=== PATIENT | male | born 1950 | race African-American/Black ===

== ENCOUNTER 2018-06-08 07:50 | Emergency (ER) | payer OTHER ==
[~2018-06-08] VITALS: Ht 167.6 cm; Wt 90.0 kg
[2018-06-08] MEDS ORDERED: METHOCARBAMOL 500MG TABLET PO ONE (09:15)
[2018-06-08] MEDS ORDERED: KETOROLAC 30MG/ML VIAL IM ONE (09:15)
[2018-06-08 13:43] VITALS: BP 174/96
== END 2018-06-08 13:43 | disposition home or self-care (01) ==
LOC: ER 07:50
DX: G89.29 Other chronic pain (principal); M54.2 Cervicalgia; I10 Essential (primary) hypertension; E78.00 Pure hypercholesterolemia, unspecified; F14.10 Cocaine abuse, uncomplicated
CPT/HCPCS: 70450; 72125; 96372; 99284; J1885

== ENCOUNTER 2020-02-08 14:01 | Emergency (ER) | payer MEDICARE, OTHER ==
[~2020-02-08] VITALS: Ht 180.3 cm; Wt 76.0 kg
[2020-02-08 15:22] LABS: BASOPHILS % 0.7 % (0.0-2.0); EOSINOPHILS % 1.6 % (0.0-5.0); HEMATOCRIT. 41.3 % (42.0-52.0); HEMOGLOBIN. 13.3 g/dL (14.0-18.0); LYMPHOCYTES % 15.9 % (20.0-50.0); MEAN CORPUSCULAR HEMOGLOBIN 24.5 pg (28.0-32.0); MEAN CORPUSCULAR VOLUME 76.2 fL (80.0-94.0); MONOCYTES % 13.1 % (2.0-8.0); NEUTROPHILS % 68.7 % (40.0-76.0); PLATELET 236 x1000/uL (130-400); RED BLOOD CELL COUNT 5.42 mill/uL (4.7-6.1); RED CELL DISTRIBUTION WIDTH 17.7 % (11.6-14.6)
[2020-02-08 15:29] LABS: CHLORIDE 103 mEq/L (98-107)
[2020-02-08 21:05] VITALS: BP 126/73
== END 2020-02-08 21:06 | disposition home or self-care (01) ==
LOC: ER 14:22
DX: I10 Essential (primary) hypertension (principal); I25.10 Atherosclerotic heart disease of native coronary artery without angina pectoris; F14.10 Cocaine abuse, uncomplicated; E78.00 Pure hypercholesterolemia, unspecified; F12.10 Cannabis abuse, uncomplicated; F17.210 Nicotine dependence, cigarettes, uncomplicated; E66.9 Obesity, unspecified; Z68.23 Body mass index [BMI] 23.0-23.9, adult; Z71.6 Tobacco abuse counseling; Z95.1 Presence of aortocoronary bypass graft
CPT/HCPCS: 36415; 71045; 80053; 83880; 84484; 85025; 93005; 99285

== ENCOUNTER 2020-02-17 01:36 | Inpatient (IN) | payer MEDICARE, OTHER ==
[~2020-02-17] VITALS: Ht 180.3 cm; Wt 102.5 kg
[2020-02-17] MEDS ORDERED: ONDANSETRON HCL 4MG/2ML INJ IV STA (03:06)
[2020-02-17] MEDS ORDERED: MORPHINE SULFATE 4 MG/ML CPJ (NOT FOR IM USE) IV STA (03:06)
[2020-02-17] MEDS ORDERED: NITROGLYCERIN OINT 1GM/INCH UDPKT TD ONE (03:15)
[2020-02-17] MEDS ORDERED: ASPIRIN 81MG TABLET PO ONE (03:15)
[2020-02-17 03:25] LABS: BASOPHILS % 0.9 % (0.0-2.0); EOSINOPHILS % 2.4 % (0.0-5.0); HEMATOCRIT. 46.1 % (42.0-52.0); HEMOGLOBIN. 14.5 g/dL (14.0-18.0); LYMPHOCYTES % 26.7 % (20.0-50.0); MEAN CORPUSCULAR HEMOGLOBIN 24.5 pg (28.0-32.0); MEAN CORPUSCULAR VOLUME 77.8 fL (80.0-94.0); MEAN PLATELET VOLUME 8.5 fl (7.4-10.4); MONOCYTES % 14.3 % (2.0-8.0); NEUTROPHILS % 55.7 % (40.0-76.0); PLATELET 197 x1000/uL (130-400); RED BLOOD CELL COUNT 5.93 mill/uL (4.7-6.1); RED CELL DISTRIBUTION WIDTH 20.1 % (11.6-14.6)
[2020-02-17 04:23] LABS: CHLORIDE 105 mEq/L (98-107)
[2020-02-17 04:27] LABS: ETHANOL BLOOD < 10 mg/dL
[2020-02-17 04:46] LABS: *AMPHETAMINES SCREEN URINE NEGATIVE (NEGATIVE); *BARBITURATES SCREEN URINE NEGATIVE (NEGATIVE); *BENZODIAZEPINES SCREEN URINE NEGATIVE (NEGATIVE); *COCAINE SCREEN URINE PRESUMTIVE POSITIVE (NEGATIVE); METHADONE URINE SCREEN NEGATIVE (NEGATIVE)
[2020-02-17 04:47] LABS: CANNABINOID URINE SCREEN NEGATIVE (NEGATIVE); OPIATES URINE SCREEN PRESUMTIVE POSITIVE (NEGATIVE); PHENCYCLIDINE URINE SCREEN NEGATIVE (NEGATIVE)
[2020-02-17] MEDS ORDERED: TRAMADOL 50MG TABLET PO PRN (09:15)
[2020-02-17] MEDS ORDERED: ACETAMINOPHEN 325MG TABLET PO PRN (09:15)
[2020-02-17] MEDS ORDERED: ONDANSETRON HCL 4MG/2ML INJ IV PRN (09:15)
[2020-02-17] MEDS ORDERED: KETOROLAC 15MG/ML VIAL IV PRN (09:15)
[2020-02-17 09:45] VITALS: BP 140/76
[2020-02-17 11:54] LABS: LDL CHOLESTEROL 70 mg/dL (5-100)
[2020-02-17 11:56] LABS: HDL CHOLESTEROL 71 mg/dL (40-59)
[2020-02-17 12:00] VITALS: BP 107/55
[2020-02-17 16:00] VITALS: BP 130/77
[2020-02-17 16:54] LABS: CREATINE KINASE MB FRACTION 3.4 ng/mL (0.5-3.6); T4 FREE 1.23 ng/dL (0.76-1.46)
[2020-02-17 20:00] VITALS: BP 121/60
[2020-02-17 23:52] LABS: CREATINE KINASE MB FRACTION 2.6 ng/mL (0.5-3.6)
[2020-02-18] VITALS: BP 118/64
[2020-02-18 04:00] VITALS: BP 117/68
[2020-02-18 08:00] VITALS: BP 119/74
[2020-02-18 08:07] LABS: CREATINE KINASE MB FRACTION 1.7 ng/mL (0.5-3.6)
[2020-02-18] MEDS ORDERED: ENOXAPARIN 40MG/0.4ML SYR SUBCUT SCH (09:00)
[2020-02-18] MEDS ORDERED: ASPIRIN 81MG TABLET PO SCH (09:00)
[2020-02-18 11:58] VITALS: BP 115/68
[2020-02-18 16:00] VITALS: BP 109/67
[2020-02-18 16:41] VITALS: BP 115/68
== END 2020-02-18 17:50 | disposition home or self-care (01) | DRG 918 ==
LOC: EDBEDREQTM 04:51 → EDBEDREQ 04:51 → ER 06:06 → 8WST 06:07 → ENRESERV 07:43
PROVIDERS: ADMIT Internal Medicine; ATTEND Internal Medicine
DX: T40.5X1A Poisoning by cocaine, accidental (unintentional), initial encounter (principal); E87.1 Hypo-osmolality and hyponatremia; I50.32 Chronic diastolic (congestive) heart failure; I25.10 Atherosclerotic heart disease of native coronary artery without angina pectoris; E66.9 Obesity, unspecified; E78.5 Hyperlipidemia, unspecified; F19.11 Other psychoactive substance abuse, in remission; I73.9 Peripheral vascular disease, unspecified; I11.0 Hypertensive heart disease with heart failure; Y92.89 Other specified places as the place of occurrence of the external cause; Z95.1 Presence of aortocoronary bypass graft; Z82.49 Family history of ischemic heart disease and other diseases of the circulatory system; Z68.31 Body mass index [BMI] 31.0-31.9, adult; Z79.82 Long term (current) use of aspirin; Z79.899 Other long term (current) drug therapy
CPT/HCPCS: 36415; 71045; 80053; 80061; 80305; 80320; 82550; 82553; 83036; 83880; 84439; 84443; 84484; 85025; 85379; 93005; 93306; 96374; 99285; J1650; J2270; J2405; G0480

== ENCOUNTER 2021-01-16 05:13 | Emergency (ER) | payer OTHER, MEDICARE ==
[~2021-01-16] VITALS: Ht 177.8 cm; Wt 113.0 kg
[~2021-01-16 05:13] MED LIST: AMLO10TA80 PO; CLOP75TA33 PO; GABA-290 PO; SIMV-43 PO
[2021-01-16] MEDS ORDERED: MORPHINE SULFATE 4 MG/ML CPJ (NOT FOR IM USE) IV STA (05:30)
[2021-01-16 06:18] LABS: BASOPHILS % 0.7 % (0.0-2.0); EOSINOPHILS % 0.8 % (0.0-5.0); HEMATOCRIT. 42.9 % (42.0-52.0); LYMPHOCYTES % 11.8 % (20.0-50.0); MEAN CORPUSCULAR HEMOGLOBIN 25.1 pg (28.0-32.0); MEAN CORPUSCULAR VOLUME 76.8 fL (80.0-94.0); MEAN PLATELET VOLUME 8.3 fl (7.4-10.4); MONOCYTES % 11.8 % (2.0-8.0); NEUTROPHILS % 74.9 % (40.0-76.0); PLATELET 205 x1000/uL (130-400); RED BLOOD CELL COUNT 5.58 mill/uL (4.7-6.1); RED CELL DISTRIBUTION WIDTH 20.3 % (11.6-14.6)
[2021-01-16 08:58] LABS: *AMPHETAMINES SCREEN URINE PRESUMTIVE POSITIVE (NEGATIVE); *BARBITURATES SCREEN URINE NEGATIVE (NEGATIVE); *BENZODIAZEPINES SCREEN URINE NEGATIVE (NEGATIVE); *COCAINE SCREEN URINE PRESUMTIVE POSITIVE (NEGATIVE); CANNABINOID URINE SCREEN NEGATIVE (NEGATIVE); METHADONE URINE SCREEN NEGATIVE (NEGATIVE); OPIATES URINE SCREEN PRESUMTIVE POSITIVE (NEGATIVE); PHENCYCLIDINE URINE SCREEN NEGATIVE (NEGATIVE)
[2021-01-16 10:02] LABS: CHLORIDE 104 mEq/L (98-107)
[2021-01-16] MEDS ORDERED: IOHEXOL-350 100 ML BOTTLE ONE (11:23)
[2021-01-16 12:44] VITALS: BP 139/68
== END 2021-01-16 12:45 | disposition home or self-care (01) ==
LOC: ER 05:13
DX: R07.89 Other chest pain (principal); F14.10 Cocaine abuse, uncomplicated; F15.10 Other stimulant abuse, uncomplicated; I10 Essential (primary) hypertension; I25.10 Atherosclerotic heart disease of native coronary artery without angina pectoris; E78.00 Pure hypercholesterolemia, unspecified; Z95.1 Presence of aortocoronary bypass graft
CPT/HCPCS: 36415; 71045; 71275; 80053; 80305; 83880; 84484; 85025; 93005; 96374; 99285; J2270; Q9967

== ENCOUNTER 2021-04-16 08:16 | Inpatient (IN) | payer MEDICARE, OTHER ==
[~2021-04-16] VITALS: Ht 172.7 cm; Wt 102.5 kg
[2021-04-16] MEDS ORDERED: MORPHINE SULFATE 4 MG/ML CPJ (NOT FOR IM USE) IV STA (08:31)
[2021-04-16 09:02] LABS: BASOPHILS % 0.7 % (0.0-2.0); EOSINOPHILS % 1.7 % (0.0-5.0); HEMATOCRIT. 44.8 % (42.0-52.0); HEMOGLOBIN. 14.5 g/dL (14.0-18.0); MEAN CORPUSCULAR HEMOGLOBIN 26.4 pg (28.0-32.0); MEAN CORPUSCULAR VOLUME 81.5 fL (80.0-94.0); MEAN PLATELET VOLUME 8.5 fl (7.4-10.4); MONOCYTES % 9.6 % (2.0-8.0); PLATELET 199 x1000/uL (130-400); RED BLOOD CELL COUNT 5.51 mill/uL (4.7-6.1); RED CELL DISTRIBUTION WIDTH 17.5 % (11.6-14.6)
[2021-04-16 09:07] LABS: CHLORIDE 104 mEq/L (98-107)
[2021-04-16] MEDS ORDERED: GUAIFENESIN 200MG/10ML SUGAR FREE UDC PO PRN (13:30)
[2021-04-16] MEDS ORDERED: ENOXAPARIN 40MG/0.4ML SYR SUBCUT SCH (13:30)
[2021-04-16] MEDS ORDERED: ACETAMINOPHEN 325MG TABLET PO PRN ×2 (13:30)
[2021-04-16] MEDS ORDERED: ONDANSETRON HCL 4MG/2ML INJ IV PRN (13:30)
[2021-04-16] MEDS ORDERED: NALOXONE HCL 0.4MG/ML VIAL IV PRN (13:45)
[2021-04-16] MEDS: AMLODIPINE 10MG TABLET PO SCH (13:45)
[2021-04-16 20:13] VITALS: BP 105/56
[2021-04-16] MEDS: ATORVASTATIN CALCIUM 40MG TABLET PO SCH (20:13)
[2021-04-16] MEDS: HYDROCODONE/ACETAMINOPHEN 5/325MG TABLET PO PRN (20:13)
[2021-04-16] MEDS: ENOXAPARIN 30MG/0.3ML SYR SUBCUT SCH (20:13)
[2021-04-16 20:20] VITALS: BP 105/56
[2021-04-17] VITALS: BP 110/65
[2021-04-17 04:01] VITALS: BP 125/73
[2021-04-17 04:30] LABS: *AMPHETAMINES SCREEN URINE NEGATIVE (NEGATIVE); *BARBITURATES SCREEN URINE NEGATIVE (NEGATIVE)
[2021-04-17 04:31] LABS: *BENZODIAZEPINES SCREEN URINE NEGATIVE (NEGATIVE); *COCAINE SCREEN URINE PRESUMTIVE POSITIVE (NEGATIVE); CANNABINOID URINE SCREEN NEGATIVE (NEGATIVE); METHADONE URINE SCREEN NEGATIVE (NEGATIVE); OPIATES URINE SCREEN PRESUMTIVE POSITIVE (NEGATIVE); PHENCYCLIDINE URINE SCREEN NEGATIVE (NEGATIVE)
[2021-04-17 08:12] VITALS: BP 112/73
[2021-04-17] MEDS: CLOPIDOGREL 75MG TABLET PO SCH (08:46)
[2021-04-17] MEDS: AMLODIPINE 10MG TABLET PO SCH (08:46)
[2021-04-17] MEDS: ENOXAPARIN 30MG/0.3ML SYR SUBCUT SCH ×2 (08:46→20:34)
[2021-04-17 08:58] LABS: BASOPHILS % 0.4 % (0.0-2.0); EOSINOPHILS % 1.9 % (0.0-5.0); HEMATOCRIT. 46.1 % (42.0-52.0); HEMOGLOBIN. 14.9 g/dL (14.0-18.0); LYMPHOCYTES % 19.3 % (20.0-50.0); MEAN CORPUSCULAR HEMOGLOBIN 26.6 pg (28.0-32.0); MEAN CORPUSCULAR VOLUME 82.4 fL (80.0-94.0); MEAN PLATELET VOLUME 8.6 fl (7.4-10.4); MONOCYTES % 9.3 % (2.0-8.0); NEUTROPHILS % 69.1 % (40.0-76.0); PLATELET 201 x1000/uL (130-400); RED CELL DISTRIBUTION WIDTH 17.8 % (11.6-14.6)
[2021-04-17 09:22] LABS: CHLORIDE 105 mEq/L (98-107)
[2021-04-17 09:39] LABS: PHOSPHORUS 2.4 mg/dL (2.5-4.9)
[2021-04-17 12:00] VITALS: BP 112/66
[2021-04-17] MEDS: HYDROCODONE/ACETAMINOPHEN 5/325MG TABLET PO PRN (15:21)
[2021-04-17 16:00] VITALS: BP 107/81
[2021-04-17 20:00] VITALS: BP 123/75
[2021-04-17] MEDS: FAMOTIDINE 20MG TABLET PO SCH (20:33)
[2021-04-17] MEDS: ATORVASTATIN CALCIUM 40MG TABLET PO SCH (20:33)
[2021-04-18 04:30] VITALS: BP 106/70
[2021-04-18] MEDS: HYDROCODONE/ACETAMINOPHEN 5/325MG TABLET PO PRN ×3 (04:39→12:50)
[2021-04-18] MEDS ORDERED: POLYETHYLENE GLYCOL 3350 (17GM) 1 DOSE PACK PO PRN (06:45)
[2021-04-18 08:00] VITALS: BP 123/68
[2021-04-18 08:52] LABS: CHLORIDE 104 mEq/L (98-107)
[2021-04-18 09:09] LABS: BASOPHILS % 0.5 % (0.0-2.0); HEMATOCRIT. 45.6 % (42.0-52.0); HEMOGLOBIN. 14.8 g/dL (14.0-18.0); MEAN CORPUSCULAR HEMOGLOBIN 26.7 pg (28.0-32.0); MEAN CORPUSCULAR VOLUME 82.4 fL (80.0-94.0); MEAN PLATELET VOLUME 8.5 fl (7.4-10.4); MONOCYTES % 10.5 % (2.0-8.0); PLATELET 204 x1000/uL (130-400); RED BLOOD CELL COUNT 5.54 mill/uL (4.7-6.1); RED CELL DISTRIBUTION WIDTH 17.8 % (11.6-14.6)
[2021-04-18] MEDS: ENOXAPARIN 30MG/0.3ML SYR SUBCUT SCH ×2 (09:12→22:41)
[2021-04-18] MEDS: FAMOTIDINE 20MG TABLET PO SCH ×2 (09:12→22:41)
[2021-04-18] MEDS: AMLODIPINE 10MG TABLET PO SCH (09:13)
[2021-04-18] MEDS: CLOPIDOGREL 75MG TABLET PO SCH (09:13)
[2021-04-18 12:00] VITALS: BP 116/68
[2021-04-18 14:11] LABS: CLARITY URINE CLEAR (CLEAR); COLOR URINE YELLOW (YELLOW); KETONES URINE NEGATIVE (NEGATIVE); LEUKOCYTE ESTERASE URINE NEGATIVE (NEGATIVE); NITRITE URINE NEGATIVE (NEGATIVE); OCCULT BLOOD URINE NEGATIVE (NEGATIVE); PROTEIN URINE NEGATIVE (NEGATIVE); SPECIFIC GRAVITY URINE 1.019 (1.005-1.030)
[2021-04-18 15:16] VITALS: BP 116/68
[2021-04-18 20:43] VITALS: BP 136/87
[2021-04-18] MEDS: ATORVASTATIN CALCIUM 40MG TABLET PO SCH (22:41)
[2021-04-19] VITALS: BP 112/56
== END 2021-04-19 09:26 | disposition home or self-care (01) | DRG 918 ==
LOC: ER 08:16 → 6WST 11:04 → EDBEDREQ 11:07 → EDBEDREQTM 11:07 → SUPCPDRO 13:15 → ENRESERV 16:24
PROVIDERS: ADMIT Internal Medicine; ATTEND Internal Medicine
DX: T40.5X1A Poisoning by cocaine, accidental (unintentional), initial encounter (principal); R07.89 Other chest pain; E78.5 Hyperlipidemia, unspecified; F14.10 Cocaine abuse, uncomplicated; I10 Essential (primary) hypertension; F17.210 Nicotine dependence, cigarettes, uncomplicated; I25.10 Atherosclerotic heart disease of native coronary artery without angina pectoris; I25.2 Old myocardial infarction; Z71.51 Drug abuse counseling and surveillance of drug abuser; Z79.02 Long term (current) use of antithrombotics/antiplatelets; Z82.49 Family history of ischemic heart disease and other diseases of the circulatory system; Z95.1 Presence of aortocoronary bypass graft; I16.0 Hypertensive urgency; Z71.6 Tobacco abuse counseling
CPT/HCPCS: 36415; 71045; 80048; 80053; 80305; 81003; 83735; 83880; 84100; 84484; 85025; 93005; 93306; 99285; J1650; J2270; J2405

== ENCOUNTER 2021-06-20 02:52 | Emergency (ER) | payer MEDICARE, OTHER ==
[~2021-06-20] VITALS: Ht 162.6 cm; Wt 102.0 kg
[~2021-06-20 02:52] MED LIST changes: +OMEP10CA5 PO
[2021-06-20] MEDS ORDERED: KETOROLAC 30MG/ML VIAL IV STA (03:35)
[2021-06-20 04:15] LABS: HEMATOCRIT. 44.8 % (42.0-52.0); HEMOGLOBIN. 14.4 g/dL (14.0-18.0); MEAN CORPUSCULAR HEMOGLOBIN 26.1 pg (28.0-32.0); MEAN CORPUSCULAR VOLUME 81.3 fL (80.0-94.0); MEAN PLATELET VOLUME 8.4 fl (7.4-10.4); PLATELET 219 x1000/uL (130-400); RED BLOOD CELL COUNT 5.52 mill/uL (4.7-6.1); RED CELL DISTRIBUTION WIDTH 16.1 % (11.6-14.6)
[2021-06-20 04:31] LABS: CHLORIDE 103 mEq/L (98-107)
[2021-06-20] MEDS ORDERED: MAGN296S70 MT (04:54)
[2021-06-20 05:00] VITALS: BP 118/71
[2021-06-20] MEDS ORDERED: NA PHOS,M-B/NA PHOS,DI-BA ENEMA 118ML PR ONE (05:00)
[2021-06-20 05:15] LABS: CLARITY URINE CLEAR (CLEAR); COLOR URINE YELLOW (YELLOW); KETONES URINE NEGATIVE (NEGATIVE); LEUKOCYTE ESTERASE URINE NEGATIVE (NEGATIVE); NITRITE URINE NEGATIVE (NEGATIVE); OCCULT BLOOD URINE NEGATIVE (NEGATIVE); PH URINE 8.5 (4.5-8.0); PROTEIN URINE NEGATIVE (NEGATIVE); SPECIFIC GRAVITY URINE 1.018 (1.005-1.030); UROBILINOGEN URINE 0.2 E.U./dL (0.2-1.0)
[2021-06-20 05:32] LABS: PLATELET ESTIMATE NORMAL
== END 2021-06-20 06:00 | disposition home or self-care (01) ==
LOC: ER 02:52
DX: R10.30 Lower abdominal pain, unspecified (principal); K59.00 Constipation, unspecified; E78.00 Pure hypercholesterolemia, unspecified; I25.2 Old myocardial infarction; Z79.899 Other long term (current) drug therapy
CPT/HCPCS: 36415; 74176; 80053; 81003; 83605; 85025; 96374; 99284; J1885